=== PATIENT | male | born 1975 | race American Indian/Alaskan Native ===

== ENCOUNTER 2020-06-28 10:41 | Observation (INO) | payer BC ==
[~2020-06-28] VITALS: Ht 190.5 cm; Wt 143.0 kg
[~2020-06-28 10:41] MED LIST: Amlodipine Besyl5 MG PO; Aspirin EC81 MG PO; CHOL10002 PO; EUTHYROX50 MCG PO; LOSHYD100 PO; MONT10T PO; MULVITB PO; OXYACE5T PO; VITAMIN D-32000 UNIT PO
[2020-06-28] MEDS ORDERED: HYDMOR2 PO ×2 (11:49→12:11)
[2020-06-28 16:46] LABS: Alanine Aminotransfer (ALT/SGP 70 U/L (12-78); Albumin, Blood 4.1 g/dL (3.4-5.0); Albumin/Globulin Ratio 1.1 (0.8-1.8); Alk Phos 48 U/L (50-136); Anion Gap 6 mmol/L (6-16); Aspartate Aminotrans (AST/SGOT 41 U/L (12-37); Bilirubin, Total 0.5 mg/dL (0.1-1.0); Blood Urea Nitrogen 23 mg/dL (8-24); Bun/Creatinine Ratio 17.8 (12.0-20.0); CO2, Blood 30 mmol/L (21-32); Calcium, Blood 8.9 mg/dL (8.5-10.1); Chloride, Blood 103 mmol/L (98-108); Creatinine, Blood 1.29 mg/dL (0.60-1.20); Globulin, Blood 3.7 g/dL (2.2-4.0); Glomerular Filtration Rate >60 (60-); Glucose, Blood 102 mg/dL (70-99); Potassium, Blood 3.6 mmol/L (3.5-5.5); Sodium, Blood 139 mmol/L (136-145); Total Protein, Blood 7.8 g/dL (6.4-8.2)
[2020-06-28] MEDS ORDERED: BUPR150ER PO (16:55)
--- NOTE | 2020-06-28 18:36 | NUR ---
RECEIVED PATIENT FROM ED.
[2020-06-29 04:46] LABS: CHOL/HDL RATIO 7.7; Cholesterol 207 mg/dL (50-200); HDL Cholesterol 27 mg/dL (>39); LDL/HDL RATIO Unable to Calculate; Low Density Lipoprotein Chol Unable to Calculate mg/dL (0-110); Triglycerides 414 mg/dL (30-160); Very Low Density Lipoprot Chol Unable to Calculate mg/dL (6-32)
[2020-06-29 04:57] LABS: LDL Direct Measurement 127 mg/dL (0-130)
--- NOTE | 2020-06-29 06:27 | NUR ---
PT VSS T/O NIGHT, SATS REMAINED >90% ON RA. PT WAS NOTED TO HAVE A FEW EPISODES WHERE HE DESATTED TO MID 80'S FOR A FEW SECONDS WHILE SLEEPING, SATS QUICKLY RETURNED BACK UP TO LOW 90'S. PT DENIED SOB, CONT OX IN PLACE DURING NIGHT. PAIN MGD PER EMAR, PT REP PAIN 3/10 FOR SEVERAL HRS DURING NIGHT, HE DID REQUIRE IV FENTANYL X1. PT REQ TO ATTMEPT TO LIMIT NARCOTICS R/T HX OF CONSTIPATION. PT REPOSITIONS SELF IN BED, ABLE TO AMB INDEP INTO BATHROOM, CODIE WELL, SBA OOB FOR SAFETY.
[2020-06-29] MEDS ORDERED: OXYC10ER PO (15:51)
[2020-06-29] MEDS ORDERED: CYCL10 PO (15:52)
[2020-06-29] MEDS ORDERED: DOCUZEN 8.6-501 EACH PO (15:53)
[2020-06-29] MEDS ORDERED: MIRALAX17 G3 PO (15:54)
[2020-06-29] MEDS ORDERED: Percocet 5-3251 EACH PO (15:55)
--- NOTE | 2020-06-29 18:46 | NUR ---
SUMMARY PT HAD INCREASING PAIN T/O DAY. MEDICATED PER ORDERS FOR PAIN T/O SHIFT AND PAIN CONTINUED TO INCREASE. UNABLE TO DC DUE TO PAIN. NEW ORDERS OBTAINED FOR IV DILAUDID FOR SEVERE BREAKTHROUGH PAIN. MEDICATED PER ORDERS AND PAIN REPORTED PAIN IMPROVED FROM 8/10 TO 5/10. SPOUSE AT BEDSIDE. CALL LIGHT IN REACH. PULSE OX IN PLACE.
--- NOTE | 2020-06-30 06:08 | NUR ---
PT WAS ABLE TO SLEEP FOR SEVERAL HRS DURING NIGHT, AWOKE AROUND 0300 W/INC PAIN. 2 PERCOCET GIVEN PER EMAR W/NO IMPROVEMENT, 1MG DILAUDID GIVEN W/REP RELIEF. PT REP NO CHANGES IN SENSATION, CONT TO REP MILD NUMBNESS AROUND LEFT KNEE NEAR SWOLLEN AREA. 1LO2 NC PLACED WHILE SLEEPING TO KEEP SATS >90%, CONT OX IN PLACE. PT UP OOB INDEP, IS STEADY ON FEET.
[2020-06-30 10:00] LABS: Anion Gap 5 mmol/L (6-16); Blood Urea Nitrogen 26 mg/dL (8-24); Bun/Creatinine Ratio 21.8 (12.0-20.0); CO2, Blood 29 mmol/L (21-32); Calcium, Blood 8.8 mg/dL (8.5-10.1); Chloride, Blood 102 mmol/L (98-108); Creatinine, Blood 1.19 mg/dL (0.60-1.20); Glomerular Filtration Rate >60 (60-); Glucose, Blood 101 mg/dL (70-99); Potassium, Blood 3.8 mmol/L (3.5-5.5); Sodium, Blood 136 mmol/L (136-145)
[2020-06-30] MEDS ORDERED: HYDMOR2 PO (16:11)
[2020-06-30] MEDS ORDERED: METPRE4DP (17:31)
[2020-06-30] MEDS ORDERED: IBUP600 PO (17:31)
--- NOTE | 2020-06-30 17:52 | NUR ---
DISCHARGE PT'S PAIN MUCH BETTER CONTROLLED. SCRIPT GIVEN & IBU CALLED IN PT ALREADY HAS METHYLPREDNISOLONE AT HOME. ESCORTED OUT VIA W/C. .
== END 2020-06-30 17:51 | disposition home or self-care (01) ==
LOC: ER 10:41 → SURS 10:42
PROVIDERS: Internal Medicine; Nurse Practitioner Acute Care; ADMIT Hospitalist
DX: M51.36 Other intervertebral disc degeneration, lumbar region (principal); M48.07 Spinal stenosis, lumbosacral region; I10 Essential (primary) hypertension; E03.9 Hypothyroidism, unspecified; F32.9 Major depressive disorder, single episode, unspecified; E66.01 Morbid (severe) obesity due to excess calories; E78.5 Hyperlipidemia, unspecified; Z68.38 Body mass index [BMI] 38.0-38.9, adult
CPT/HCPCS: 36415; 80048; 80053; 80061; 83721; 83735; 94762; 96374; 96375; 96376; 97110; 97116; 97161; 97530; 99284-25; A9270; G0378; J1170; J1650; J1885; J3010; J7030; J7509

== ENCOUNTER → 2021-05-15 | Outpatient (CLI) | payer BC ==
[~2021-05-15] MED LIST changes: +BUPR150ER PO; +CYCL10 PO; +DOCUZEN 8.6-501 EACH PO; +HYDMOR2 PO; +IBUP600 PO; +METPRE4DP; +MIRALAX17 G3 PO; +OXYC10ER PO; +Percocet 5-3251 EACH PO
== END ==
LOC: LAB SHORT 08:40
DX: I10 Essential (primary) hypertension (principal)
CPT/HCPCS: 82043